=== PATIENT | male | born 1980 | race Caucasian/White ===

== ENCOUNTER 2016-08-11 01:01 | Inpatient (IN) ==
[2016-08-11] MEDS ORDERED: Naloxone 0.4 MG/ML INJ IVP PRN (02:30)
[2016-08-11] MEDS ORDERED: *HR* HYDROcodone/Acet 5/325 mg TABLET PO PRN ×2 (02:30→08:26)
[2016-08-11] MEDS ORDERED: Acetaminophen 325 MG TABLET PO PRN (02:30)
[2016-08-11] MEDS ORDERED: Ondansetron 4 MG/2 ML VIAL IVP PRN (02:30)
[2016-08-11 03:24] LABS: Bilirubin,Urine Negative (Negative); Blood,Urine Trace (Negative); Clarity,Urine Cloudy (Clear); Color,Urine Yellow (Yellow); Glucose,Urine (UA) Normal (Normal); Ketones,Urine Negative (Negative); Leukocyte Esterase,Urine Moderate (Negative); Nitrite,Urine Negative (Negative); PH,Urine 7.5 pH Units (5.0-8.0); Protein,Urine Negative (Neg-Trace); Specific Gravity,Urine 1.017 (1.010-1.025); Urobilinogen,Urine Normal (Normal)
[2016-08-11 03:25] LABS: Bacteria,Urine None Seen per hpf (None-Few); Hyaline Casts,Urine None Seen per lpf (None-Few); RBC,Urine 0-3 per hpf (0-3); Squamous Epithelial Cell,Urine Many per lpf (None-Few); WBC,Urine 50-100 per hpf (0-3)
--- NOTE | 2016-08-11 03:33 | Internal Med History&Physical ---
<Jimmie Wen - Last Filed: 08/11/16 04:09> Date of Encounter: 08/11/16 Time of Encounter: 03:00 Assessment and Plan (1) Orchitis Current visit: Yes Status: Acute -Evaluated at [facility] on 08/10/16. Transferred to [facility] for urology consult. Dr. Rehman is aware. -Paperwork of transfer is available -At [facility]: Doxycycline 100 mg, Rocephin 1 g given at 8 PM. 1 L bolus, Zofran, fentanyl for pain. -Ultrasound of testes with color duplex showed right testicle measuring 5.38 x 3.03 x 2.93cm, left 5.05 x 3.26 x 2.80cm showing hyperemic left flow bilaterally , concerning for orchitis. Right epididymis measuring 8 x 19 x 10 mm, left epididymitis measure 11 x 14 x 17 mm concern for epididymitis. Anterior left testicle shows 2 mm shadowing echogenic focus concerning for scrotal elia. There are findings concerning for an underlying complex scrotal pyocele with multiple loculated and septated collections. Recommending follow-up for development of abscess exclusion for underlying neoplasm -CT the abdomen without contrast: Calcifications and heterogeneous appearance of prostate. Enlarged inguinal lymph nodes. Extensive fluid/edema and stranding within the scrotum soft tissues. -UA positive for white blood cells (15), leuk esterase (small). -WBC 12, tachy, afebrile, known source of infection. Sepsis criteria met. -Hypertension likely due to pain. No anti HTN meds needed at this time. Will control pain with fentanyl. Recieved 150mcg at [facility]. Patient states that he does not want Dilaudid or narcotics because he is in remission and the " fentanyl appears to work without causing cravings". Tylenol ordered too. Denies Hep C or IV drug use. Plan -Sepsis workup: Will give additional 1L fluid bolus. Labs. Continue abx. Urine and culture. -Blood cultures, Chlamydia and gonorrhea at [facility] -Pain control with fentanyl, nausea well control with Zofran -NPO now until Urology consult (2) Epididymitis Current visit: Yes Status: Acute -see above (3) Sepsis Current visit: Yes Status: Acute -see above Qualifiers: Sepsis type: sepsis due to unspecified organism Qualified Code(s): A41.9 - Sepsis, unspecified organism (4) Narcotic abuse in remission Current visit: Yes Status: Acute -see above (5) Suprapubic pain Current visit: Yes Status: Acute -Most likely from orchitis/epididymitis. Refer pain. See above Internal Medicine - H&P: HPI Chief complaint: Scrotal swelling and testicular pain Admitted From: Intrahospital Transfer Plans for Post Hospital Care: Home History of present illness: Mr. Eller is a 35 year old male, H Kidney stones, admitted for orchitis/ epididymitis. 2 days ago patient noticed scrotal swelling before going to bed, woke up in the morning and noticed marked increase in swelling and dull achy pain. Since that time, pain has intensified and so has the swelling. Pain starting to radiate to lower abdomen. Pain worse with palpation, movement. Mildly relieved with urinating. Admits to nausea. Denies vomiting fever, urethral discharge, hematuria, syncope. Denies trauma to the area. Is sexually active with one partner over the last 6 months. No change with sexual practices. Denies using condoms. Has never been diagnosed with STD, never been tested. Previous history of kidney stones that passed voluntarily. Past Med Surg Social Fam HX - Past Medical History Medical history: kidney stones (not requiring surgery ) Psychiatric history: no psych history - Past Surgical History Surgical History: no surgical history - Social History Smoking Status: Current every day smoker Packs per day: 1 Smokeless Tobacco Status: No Alcohol use: rarely Drug use: opiates (not IV drugs. ) Current living situation: Home - Independent Activity Level: Independent ambulation - Family History Grandmother Hx Family Cardiac Disorders: Yes (HTN) Internal Medicine - H&P: Meds Allergies No Known Allergies Allergy (Verified 08/11/16 02:44) All Systems PM: A 10-system review of systems was performed and is negative for pertinent findings except as documented above in the HPI. - Constitutional Constitutional: as per HPI - Cardiovascular Cardiovascular ROS IM: no chest pain, no diaphoresis, no dyspnea, no lightheadedness, no palpitations, no syncope - Respiratory Respiratory: no cough, no dyspnea, no wheezing, no excessive phlegm production - Gastrointestinal Gastrointestinal: as per HPI, no diarrhea, no hematemesis, no hematochezia, no melena - Genitourinary Genitourinary ROS male: as per HPI - Musculoskeletal Musculoskeletal ROS IM: no back pain, no joint swelling, no myalgias - Integumentary Integumentary IM: as per HPI - Neurological Neurological ROS: no confusion, no convulsions, no focal weakness, no numbness, no tingling, no tremor(s) - Constitutional Vitals: Temp Pulse Resp BP Pulse Ox 98.7 F 102 22 155/89 98 08/11/16 02:54 08/11/16 02:54 08/11/16 02:54 08/11/16 02:54 08/11/16 02:54 General appearance: Present: mild distress (to moderate. ), A&O X 3, answers questions appropriately - Head Head exam: Present: atraumatic, normocephalic - Eye Eye exam: Present: PERRL, conjuntiva pink, sclera anicteric Pupils: Present: PERRL - Neck Neck exam general surgery: Present: supple, trachea midline. Absent: lymphadenopathy - Respiratory Respiratory exam: Present: CTAB. Absent: accessory muscle use, rales, rhonchi, wheezes - Cardiovascular Cardiovascular exam: Present: RRR, +S1, +S2. Absent: diastolic murmur, gallop, rubs, systolic murmur - GI/Abdominal GI/Abdominal exam: Present: normal bowel sounds, soft, tenderness, no peritoneal signs. Absent: distended - exam: Present: circumcision, scrotal swelling (Size of grapefruit. Fluid filled. Errythema. Very tender on palpation. Hard to visualize testicles), testicular tenderness (Diffuse). Absent: urethral discharge External exam: Present: erythema. Absent: ecchymosis, lacerations, lesions - Expanded Exam exam: testicular swelling: Left, Right, testicular tenderness: Left, Right - Other Additional findings: no CVA tenderness Internal Med - H&P Results - Labs Labs: Urine 08/11/16 Range/Units 03:11 Urine Color Yellow (Yellow) Urine Clarity Cloudy A (Clear) Urine pH 7.5 (5.0-8.0) pH Units Ur Specific [place] 1.017 (1.010-1.025) Urine Protein Negative (Neg-Trace) mg/dL Urine Glucose (UA) Normal (Normal) mg/dL <Delores Chowdhury R - Last Filed: 08/11/16 06:02> Date of Encounter: 08/11/16 Internal Medicine - H&P: HPI History of present illness: Mr. Eller is a 35 year old male All Systems PM: A 10-system review of systems was performed and is negative for pertinent findings except as documented above in the HPI. - Constitutional Vitals: Temp Pulse Resp BP Pulse Ox 98.7 F 102 22 155/89 98 08/11/16 02:54 08/11/16 02:54 08/11/16 02:54 08/11/16 02:54 08/11/16 02:54 Internal Med - H&P Results - Labs CBC & Chem 7: 08/11/16 04:03 08/11/16 04:03 Labs: Short CBC 08/11/16 Range/Units 04:03 WBC 16.5 H (4.3-11.1) K/mcL Hgb 12.3 L (12.9-16.9) g/dL Hct 35.4 L (37.5-50.1) % Plt Count 192 (140-400) K/mcL Neutrophils # 13.9 H (1.6-8.9) K/mcL BMP 08/11/16 04:03 Sodium 134 L Potassium 3.9 Chloride 104 Carbon Dioxide 24 BUN 5 L Creatinine 0.75 Glucose 99 Calcium 9.0 Liver Function 08/11/16 08/11/16 Range/Units 04:03 04:03 Total Bilirubin 0.5 0.5 (0.2-1.2) mg/dL Direct Bilirubin 0.3 (0.0-0.5) mg/dL AST 30 31 (5-34) Units/L ALT 35 35 (0-55) Units/L Alkaline Phosphatase 120 120 (38-126) Units/L Albumin 2.9 L 2.9 L (3.5-5.0) g/dL Urine 08/11/16 Range/Units 03:11 Urine Color Yellow (Yellow) Urine Clarity Cloudy A (Clear) Urine pH 7.5 (5.0-8.0) pH Units Ur Specific [place] 1.017 (1.010-1.025) Urine Protein Negative (Neg-Trace) mg/dL Urine Glucose (UA) Normal (Normal) mg/dL - Attending Attestation I performed history and physical examination of the patient and discussed management with the Eyelet Maker / Resident. I reviewed the Eyelet Maker / Residents note and agree with documented findings and plan of care. 35 Y/M with h/o kidney stones, admitted with scrotal swelling and pain, radiating to lower abdomen. Denied fever, urethral discharge, hematuria. He was evaluated in the emergency department at the [facility] and was thought to have epididymo-orchitis. He was given ceftriaxone and doxycycline. He is transferred to [facility], for urology consult and further management. O/E: In distress due to pain. Erythema, swelling and tenderness of the scrotum. No urethral discharge. Abdomen: non tender Labs and imaging results reviewed. A/P: Epididymo-orchitis: Continue with ceftriaxone and doxycycline. Supportive care. Urology consultation. Urine cultures and gonorrhea/Chlamydia amplification done at [facility] need to follow the results. Sepsis: IV fluids and antibiotics. Check lactate level
[2016-08-11] MEDS: 0.9 % Sodium Chloride 1,000 ML IVC SCH ×2 (03:36→19:05)
[2016-08-11] MEDS ORDERED: 0.9 % Sodium Chloride 1,000 ML IVC ONE (03:39)
[2016-08-11] MEDS ORDERED: *HR* FentaNYL (PF) 100 MCG/2 ML VIAL IVP PRN (03:39)
[2016-08-11 04:11] LABS: Basophils % 0.1 %; Eosinophils % 0.1 %; Hematocrit 35.4 % (37.5-50.1); Hemoglobin 12.3 g/dL (12.9-16.9); Immature Granulocytes % 0.6 % (0-4); Lymphocytes # 1.4 K/mcL (0.6-4.6); Lymphocytes % 8.6 %; Mean Corpuscular HGB Conc 34.7 g/dL (31.6-35.5); Mean Corpuscular Hemoglobin 30.1 pg (28.0-33.3); Mean Corpuscular Volume 86.6 fL (83.0-100.0); Mean Platelet Volume 9.5 fL (9.4-12.4); Monocytes # 1.1 K/mcL (0.0-1.3); Monocytes % 6.5 %; Neutrophils # 13.9 K/mcL (1.6-8.9); Platelet Count 192 K/mcL (140-400); Red Blood Count 4.09 M/mcL (4.19-5.50); Red Cell Distribution Width 12.3 % (11.5-14.5); Segmented Neutrophils % 84.1 %
[2016-08-11 04:16] LABS: INR 1.3; Prothrombin Time 14.5 Seconds (9.4-12.1)
[2016-08-11 04:19] LABS: Activated Partial Thrombo Time 32.4 Seconds (26.0-36.0)
[2016-08-11 04:25] LABS: Alanine Aminotransferase 35 Units/L (0-55); Albumin 2.9 g/dL (3.5-5.0); Albumin/Globulin Ratio 0.7 (1.1-2.2); Alkaline Phosphatase 120 Units/L (38-126); Aspartate Amino Transferase 30 Units/L (5-34); BUN/Creatinine Ratio 7 (6-26); Bilirubin,Total 0.5 mg/dL (0.2-1.2); Carbon Dioxide 24 mEq/L (19-29); Chloride 104 mEq/L (98-109); Globulin 3.9 g/dL (2.4-3.5); Glucose 99 mg/dL (70-99); Magnesium 1.8 mg/dL (1.6-2.6); Osmolality,Calculated 275 (280-300); Phosphorous 2.3 mg/dL (2.3-4.7); Potassium 3.9 mEq/L (3.5-4.5); Sodium 134 mEq/L (136-145); Total Protein 6.8 g/dL (6.0-8.3); eGFR For African Americans > 60 (> 60); eGFR For Non-African Americans > 60 (> 60)
[2016-08-11 04:26] LABS: Albumin 2.9 g/dL (3.5-5.0); Albumin/Globulin Ratio 0.8 (1.1-2.2); Bilirubin,Direct 0.3 mg/dL (0.0-0.5); Bilirubin,Indirect 0.2 mg/dL (0.0-1.2); Bilirubin,Total 0.5 mg/dL (0.2-1.2); Globulin 3.8 g/dL (2.4-3.5); Total Protein 6.7 g/dL (6.0-8.3)
[2016-08-11 04:27] LABS: Blood Urea Nitrogen 5 mg/dL (8-26)
[2016-08-11] MEDS: Doxycycline 100 MG in 0.9 % Sodium Chloride Mini Bag 100 ML IVPB SCH ×2 (08:01→20:41)
[2016-08-11] MEDS ORDERED: *HR* Morphine 2 MG/ML SYRINGE IVP PRN (08:28)
--- NOTE | 2016-08-11 08:32 | Urology - Consult Note ---
Date of Encounter: 08/11/16 Time of Encounter: 08:30 - Assessment and Plan (1) Orchitis Current Visit: Yes Status: Acute Assessment and plan: patient has bilateral orchitis. will need to continue with iv abx. He will likely need to be on iv abx for a couple of days. This is very rarely operative in nature. I discussed with the patient pain control options. Fentanyl is not a good pain control med as it is quick on and then off, it is roughly 50x stronger than morphine. He has agreed to go with norco and morphine combo with motrin scheduled. Scrotal support at all times. Urology CN:HPI Consult date: 08/11/16 Reason for consult Urology: Other (orchitis) Requesting physician: Delores Chowdhury History of present illness: Abel is a 35 y/o male with 3 day history of bilateral scrotal swelling. The patient states that he denies any trauma or voiding problems. The patient went to [facility] yesterday and was found on us and ct to have orchitis. no fevers, but elevated WBC. Past Med Surg Social Fam HX - Past Medical History Medical history: kidney stones (not requiring surgery ) Psychiatric history: no psych history - Past Surgical History Surgical History: no surgical history - Social History Smoking Status: Current every day smoker Packs per day: 1 Smokeless Tobacco Status: No Alcohol use: rarely Drug use: opiates (not IV drugs. ) - Family History Grandmother Hx Family Cardiac Disorders: Yes (HTN) Medications and Allergies Allergies No Known Allergies Allergy (Verified 08/11/16 02:44) Review of Systems - Constitutional no fever(s) - EENT Nose, mouth and throat: no dizziness - Cardiovascular no chest pain - Respiratory no cough - Gastrointestinal no abdominal pain - Genitourinary as per HPI Exam Initial Vital Signs Pulse Ox 98 08/11/16 02:44 - General physical appearance Present: well developed - Eyes Present: PERRL - ENT Present: normal nares - Neck Present: no masses - Respiratory Present: normal respiratory effort - Cardiovascular Cardiovascular exam IM: RRR - Abdomen Abdomen: Present: soft - Genitourinary other (bilateral scrotal swelling with difficult to palpate testicles. no obvious abscess) Urology Results - Labs 08/11/16 04:03 08/11/16 04:03 Abnormal lab results WBC 16.5 K/mcL (4.3-11.1) H 08/11/16 04:03 RBC 4.09 M/mcL (4.19-5.50) L 08/11/16 04:03 Hgb 12.3 g/dL (12.9-16.9) L 08/11/16 04:03 Hct 35.4 % (37.5-50.1) L 08/11/16 04:03 Neutrophils # 13.9 K/mcL (1.6-8.9) H 08/11/16 04:03 PT 14.5 Seconds (9.4-12.1) H 08/11/16 04:03 Sodium 134 mEq/L (136-145) L 08/11/16 04:03 BUN 5 mg/dL (8-26) L 08/11/16 04:03 POC Glucose 105 (58-89) H 08/11/16 03:00 Calculated Osmolality 275 (280-300) L 08/11/16 04:03 Albumin 2.9 g/dL (3.5-5.0) L 08/11/16 04:03 Globulin 3.9 g/dL (2.4-3.5) H 08/11/16 04:03 Albumin/Globulin Ratio 0.7 (1.1-2.2) L 08/11/16 04:03 Urine Clarity Cloudy (Clear) A 08/11/16 03:11 Urine Blood Trace (Negative) H 08/11/16 03:11 Ur Leukocyte Esterase Moderate (Negative) H 08/11/16 03:11 Urine Microscopic WBC 50-100 per hpf (0-3) H 08/11/16 03:11 Ur Squamous Epith Cells Many per lpf (None-Few) H 08/11/16 03:11 Ur Culture Indicated? YES (NO) A 08/11/16 03:11 Diabetes panel 08/11/16 08/11/16 Range/Units 04:03 04:03 Sodium 134 L (136-145) mEq/L Potassium 3.9 (3.5-4.5) mEq/L Chloride 104 (98-109) mEq/L Carbon Dioxide 24 (19-29) mEq/L BUN 5 L (8-26) mg/dL Creatinine 0.75 (0.72-1.25) mg/dL Glucose 99 (70-99) mg/dL Calcium 9.0 (8.6-10.8) mg/dL AST 30 31 (5-34) Units/L ALT 35 35 (0-55) Units/L Alkaline Phosphatase 120 120 (38-126) Units/L Albumin 2.9 L 2.9 L (3.5-5.0) g/dL Calcium panel 08/11/16 08/11/16 Range/Units 04:03 04:03 Calcium 9.0 (8.6-10.8) mg/dL Phosphorus 2.3 (2.3-4.7) mg/dL Albumin 2.9 L 2.9 L (3.5-5.0) g/dL Pituitary panel 08/11/16 Range/Units 04:03 Sodium 134 L (136-145) mEq/L Potassium 3.9 (3.5-4.5) mEq/L Chloride 104 (98-109) mEq/L Carbon Dioxide 24 (19-29) mEq/L BUN 5 L (8-26) mg/dL Creatinine 0.75 (0.72-1.25) mg/dL Glucose 99 (70-99) mg/dL Calcium 9.0 (8.6-10.8) mg/dL Adrenal panel 08/11/16 08/11/16 Range/Units 04:03 04:03 Sodium 134 L (136-145) mEq/L Potassium 3.9 (3.5-4.5) mEq/L Chloride 104 (98-109) mEq/L Carbon Dioxide 24 (19-29) mEq/L BUN 5 L (8-26) mg/dL Creatinine 0.75 (0.72-1.25) mg/dL Glucose 99 (70-99) mg/dL Calcium 9.0 (8.6-10.8) mg/dL Total Bilirubin 0.5 0.5 (0.2-1.2) mg/dL AST 30 31 (5-34) Units/L ALT 35 35 (0-55) Units/L Alkaline Phosphatase 120 120 (38-126) Units/L Albumin 2.9 L 2.9 L (3.5-5.0) g/dL All other labs normal. Consult Discharge Plan - Plan Referrals: NO,PCP [Primary Care Provider] -
[2016-08-11] MEDS: Ibuprofen 800 MG TABLET PO SCH ×3 (08:45→23:50)
--- NOTE | 2016-08-11 12:09 | Event Note ---
Date of Encounter: 08/11/16 Time of Encounter: 12:05 35 year old male with no significant past medical history, was admitted with bilateral scrotal pain and swelling. He was noted to have B/L epididymoorchitis and admitted for Urology evaluation. Patient is in mild pain, but resting in bed; Chest- S1, S2 heard, RRR; lungs are clear to auscultation B/L anterolaterally Inguinal area- erythema and swelling and tenderness over B/L scrota B/L epididymo-orchitis- uncertain etiology; Urology consult appreciated; continue IV antibiotics- Doxycycline and Rocephin for now. No surgical indication at this time. Pain control regimen changed to IV Morphine and PO Percocet; supportive care;
[2016-08-12 04:27] LABS: Basophils % 0.4 %; Eosinophils # 0.2 K/mcL (0.0-0.6); Eosinophils % 2.7 %; Hematocrit 35.7 % (37.5-50.1); Immature Granulocytes % 0.5 % (0-4); Lymphocytes # 1.7 K/mcL (0.6-4.6); Lymphocytes % 22.4 %; Mean Corpuscular HGB Conc 33.6 g/dL (31.6-35.5); Mean Corpuscular Hemoglobin 30.2 pg (28.0-33.3); Mean Corpuscular Volume 89.7 fL (83.0-100.0); Mean Platelet Volume 9.9 fL (9.4-12.4); Monocytes # 0.7 K/mcL (0.0-1.3); Monocytes % 9.8 %; Neutrophils # 4.8 K/mcL (1.6-8.9); Platelet Count 185 K/mcL (140-400); Red Blood Count 3.98 M/mcL (4.19-5.50); Red Cell Distribution Width 12.4 % (11.5-14.5); Segmented Neutrophils % 64.2 %
[2016-08-12 04:46] LABS: Platelet Estimate Normal (Normal)
[2016-08-12] MEDS: Ibuprofen 800 MG TABLET PO SCH ×3 (08:08→23:56)
[2016-08-12] MEDS: Doxycycline 100 MG in 0.9 % Sodium Chloride Mini Bag 100 ML IVPB SCH ×2 (08:08→19:48)
--- NOTE | 2016-08-12 08:44 | Urology Progress Note ---
Date of Encounter: 08/12/16 Time of Encounter: 08:43 - Assessment and Plan (1) Orchitis Current Visit: Yes Status: Acute Assessment and plan: improving with iv abx. recommend one more day of IV ABX and possible dc home tomorrow with po abx if continuing to improve. Progress Note Narrative: patient seen this am. feeling better. WBC improved. Objective Initial Vital Signs Pulse Ox 98 08/11/16 02:44 - General physical appearance Present: well developed - Abdomen Present: soft - Genitourinary Present: other (improved edema and redness) - Labs 08/12/16 03:59 08/11/16 04:03 Consult Discharge Plan - Plan Referrals: NO,PCP [Primary Care Provider] -
[2016-08-12] MEDS: 0.9 % Sodium Chloride 1,000 ML IVC SCH ×2 (10:29→18:53)
--- NOTE | 2016-08-12 15:27 | Internal Med Progress Note ---
Date of Encounter: 08/12/16 Time of Encounter: 13:40 - Assessment and plan (1) Sepsis Current Visit: Yes Status: Resolved Assessment and plan: Secondary to bilateral epididymal orchitis. Continue IV antibiotics. Blood and urine cultures so far negative. Improved leukocytosis and tachycardia. Lactic acid levels noted to be normal. Qualifiers: Sepsis type: sepsis due to unspecified organism Qualified Code(s): A41.9 - Sepsis, unspecified organism (2) Epididymo-orchitis, acute Current Visit: Yes Status: Acute Assessment and plan: Noted to have bilateral epididymal orchitis, uncertain etiology. Continue IV doxycycline and Rocephin for now. Pain control with when necessary IV morphine and oral Percocet. Clinically much improved today. Urology follow-up appreciated, needs 1 more day of IV antibiotics. (3) Narcotic abuse in remission Current Visit: Yes Status: Inactive - Subjective Interval history: Improving scrotal pain, able to ambulate well. Tolerates oral diet. No dysuria or hematuria. - Constitutional Vitals: Temp Pulse Resp BP Pulse Ox 97.8 F 75 14 136/81 98 08/12/16 15:06 08/12/16 15:06 08/12/16 15:06 08/12/16 15:06 08/12/16 15:06 General appearance: Present: A&O X 3, answers questions appropriately - Respiratory Respiratory exam: Present: CTAB. Absent: accessory muscle use, rales, rhonchi, wheezes - Cardiovascular Cardiovascular exam: Present: RRR, +S1, +S2. Absent: diastolic murmur, gallop, rubs, systolic murmur Internal Medicine: Result - Labs CBC & Chem 7: 08/12/16 03:59 08/11/16 04:03 Labs: Short CBC 08/12/16 Range/Units 03:59 WBC 7.5 D (4.3-11.1) K/mcL Hgb 12.0 L (12.9-16.9) g/dL Hct 35.7 L (37.5-50.1) % Plt Count 185 (140-400) K/mcL Neutrophils # 4.8 (1.6-8.9) K/mcL - ABG Interpretation ABG results: PT/INR, D-dimer PT 14.5 Seconds (9.4-12.1) H 08/11/16 04:03 Consult Discharge Plan - Plan Referrals: NO,PCP [Primary Care Provider] -
[2016-08-13] MEDS: 0.9 % Sodium Chloride 1,000 ML IVC SCH (04:09)
--- NOTE | 2016-08-13 07:17 | Urology Progress Note ---
Date of Encounter: 08/13/16 Time of Encounter: 07:16 - Assessment and Plan (1) Orchitis Current Visit: Yes Status: Acute Assessment and plan: doing well 3 more weeks of cipro 500mg po bid f/u with me in [place] 4-5 weeks Progress Note Narrative: patient seen. feeling much better. no fevers. Objective Initial Vital Signs Pulse Ox 98 08/11/16 02:44 - General physical appearance Present: well developed - Abdomen Present: soft - Genitourinary Present: other (resolving orchitis, improved from yest exam ) - Labs 08/12/16 03:59 08/11/16 04:03 Consult Discharge Plan - Plan Referrals: NO,PCP [Primary Care Provider] -
[2016-08-13] MEDS: Ibuprofen 800 MG TABLET PO SCH (08:44)
[2016-08-13] MEDS: Doxycycline 100 MG in 0.9 % Sodium Chloride Mini Bag 100 ML IVPB SCH (08:44)
[2016-08-13 10:40] VITALS: BP 125/84
--- NOTE | 2016-08-13 12:02 | Discharge Summary ---
Date of Encounter: 08/13/16 Time of Encounter: 11:53 - Discharge Diagnosis (1) Sepsis Priority: Primary Status: Resolved Qualifiers: Sepsis type: sepsis due to unspecified organism Qualified Code(s): A41.9 - Sepsis, unspecified organism (2) Epididymo-orchitis, acute Priority: Primary Status: Acute (3) Narcotic abuse in remission Priority: Secondary Status: Inactive - Discharge Medications Prescriptions: Ibuprofen [Motrin] 800 mg PO Q8HR PRN #20 tablet PRN Reason: Pain Ciprofloxacin [Cipro] 500 mg PO BID #42 tablet Home Medications: Ciprofloxacin [Cipro] 500 mg PO BID #42 tablet 08/13/16 [Rx] Ibuprofen [Motrin] 800 mg PO Q8HR PRN #20 tablet 08/13/16 [Rx] Allergies/Adverse Reactions: Allergies No Known Allergies Allergy (Verified 08/11/16 02:44) Date of admission: 08/11/16 04:03 Primary care physician: PCP NO Consults: 08/11/16 03:39 Consult to Urology [CONS] Routine Consulting Provider: Urology Shanna Reason for Consult: Orchitis. Transfer from [facility]. Call Completed: Yes Discharging clinician: Jia Sheldon Anticipated date of discharge: 08/13/16 - Patient Status Disposition: Home, Self-Care Condition: Good Functional capacity at discharge: independent ambulation Overall status at discharge: patient is progressing back to baseline - Discharge Instructions Instructions: Epididymo-orchitis (DC) Follow Up With: Eduardo Abebe MD [Partnered Physician] - 09/28/16 11:15 am NO,PCP [Primary Care Provider] - Additional Instructions: Call the physician referral line @ to secure a primary care doctor appointment. Finish all antibiotic prescriptions even if all symptoms disappear. Go to nearest emergency room for fever, chills, or worsening of symptoms. - Diet and Activity Activity: increase activity as tolerated Diet: regular diet Hospital course: Mr. Eller is a 35 year old male with no significant medical history, was admitted with bilateral scrotal pain, redness and swelling. Testicular ultrasound done in the emergency room showed bilateral epididymitis and orchitis. He was also noted to have tachycardia and mild leukocytosis, meeting sepsis criteria. He was started on aggressive IV hydration, IV antibiotics- doxycycline and Rocephin and pain control with when necessary IV fentanyl. Urology was consulted who followed the patient during this hospitalization and after 2 days of IV antibiotics, cleared him for discharge with oral antibiotics for 3 more weeks and outpatient urology follow-up in 4-5 weeks. Patient scrotal pain and swelling have improved and he currently tolerates oral diet and noted to ambulate well. He is only requiring ibuprofen for pain control and is otherwise medically stable for discharge. - Time Spent with Patient Total time spent providing and/or coordinating discharge services: Greater than 30 minutes (45 min) - Constitutional Vitals: Temp Pulse Resp BP Pulse Ox 97.3 F L 89 18 125/84 99 08/13/16 10:38 08/13/16 10:38 08/13/16 10:38 08/13/16 10:38 08/13/16 10:38 General appearance: Present: A&O X 3, answers questions appropriately - Respiratory Respiratory exam: Present: CTAB. Absent: accessory muscle use, rales, rhonchi, wheezes - Cardiovascular Cardiovascular exam: Present: RRR, +S1, +S2. Absent: diastolic murmur, gallop, rubs, systolic murmur
== END 2016-08-13 12:19 | disposition home or self-care (01) | DRG 872 ==
LOC: 3NENU → SUATTDRO 04:03
PROVIDERS: ADMIT Internal Medicine; ATTEND Internal Medicine